=== PATIENT | male | born 1950 | race Caucasian/White ===

== ENCOUNTER 2018-08-06 22:10 | Emergency (ER) | payer OTHER ==
[~2018-08-06] VITALS: Ht 185.4 cm; Wt 99.8 kg
[2018-08-07] MEDS ORDERED: ZITHROMAX500 MG PO (02:49)
[2018-08-07] MEDS ORDERED: ZYNCOF 20-400120 ML PO (02:49)
[2018-08-07] MEDS ORDERED: SYMBICORT 16010.2 GM IH (02:49)
[2018-08-07] MEDS ORDERED: XOPENEX0.63 MG/3 IH (02:49)
[2018-08-07] MEDS ORDERED: SINGULAIR 10MG10 MG PO ×2 (02:51→02:54)
== END 2018-08-07 02:59 | disposition home or self-care (01) ==
LOC: ER 22:10
DX: B34.9 Viral infection, unspecified (principal); J11.1 Influenza due to unidentified influenza virus with other respiratory manifestations

== ENCOUNTER 2020-07-07 09:57 | Outpatient (CLI) | payer OTHER ==
[~2020-07-07 09:57] MED LIST: SINGULAIR 10MG10 MG PO; SYMBICORT 16010.2 GM IH; XOPENEX0.63 MG/3 IH; ZITHROMAX500 MG PO; ZYNCOF 20-400120 ML PO
== END 2020-07-07 10:08 | disposition home or self-care (01) ==
LOC: SONOGRAMA 09:57
PROVIDERS: ATTEND Specialist
DX: L04.2 Acute lymphadenitis of upper limb (principal); R22.32 Localized swelling, mass and lump, left upper limb

== ENCOUNTER 2023-12-31 23:37 | Emergency (ER) | payer OTHER ==
[~2023-12-31] VITALS: Ht 182.9 cm; Wt 106.6 kg
[2023-12-31] MEDS ORDERED: IRBESARTAN150 MG PO (23:53)
[2023-12-31] MEDS ORDERED: TOPROL XL25 M1 PO (23:54)
[2023-12-31] MEDS ORDERED: LIPITOR40 M1 PO (23:54)
[2024-01-01 03:37] LABS: HEMATOCRIT 43.2 % (39.0-48.0); HEMOGLOBIN 14.9 g/dL (13-16.00); MEAN CELL VOLUME 86.3 fL (80.0-100.00); MEAN CORPUSCULAR HEMOGLOBIN 29.8 pg (27.00-32.0); MEAN CORPUSCULAR HGB CONC 34.6 g/dl (32.0-36.0); RED BLOOD COUNT 5.01 M/uL (4.00-6.00); RED CELL DISTRIBUTION WIDTH 13.3 % (11.5-14.5)
[2024-01-01 03:40] LABS: PLATELET COUNT 98 K/uL (150-450)
[2024-01-01 03:51] LABS: CALCIUM 8.9 mg/dL (8.5-10.1); CREATININE SERUM 1.32 mg/dL (0.70-1.30); GFR 53.32; POTASSIUM 4.12 mEq/L (3.5-5.1)
[2024-01-01 04:50] LABS: PH,URINE 5.5 (5.0-8.0); URINE APPEARANCE Clear; URINE BILIRRUBIN Negative (NEGATIVE); URINE BLOOD Negative; URINE COLOR Yellow; URINE GLUCOSE Negative (NEGATIVE); URINE KETONE Negative (NEGATIVE); URINE LEUKOCYTE Negative; URINE NITRATE Negative; URINE PROTEIN Negative (NEGATIVE); URINE UROBILINOGEN 0.2 E.U./dl
[2024-01-01 04:53] LABS: URINE EPITHELIAL CELLS 1.5 uL (0.0-38.8); URINE RBC 3.9 uL (0.0-20.8); URINE WBC 3.3 uL (0.0-23.2)
[2024-01-01 05:02] LABS: URINE CAST 0.15 uL (0.0-1.40)
[2024-01-01] MEDS ORDERED: TYLENOL EXTRA500 MG PO (06:42)
[2024-01-01] MEDS ORDERED: ACETAMINOPHEN 500 MG GEL..CAP PO ONE ×3 (06:51→06:54)
== END 2024-01-01 06:55 ==
LOC: ER 23:38
PROVIDERS: General Practice
DX: N50.811 Right testicular pain (principal); R68.83 Chills (without fever); Z20.822 Contact with and (suspected) exposure to COVID-19; I10 Essential (primary) hypertension; N43.2 Other hydrocele

== ENCOUNTER 2024-01-05 16:17 | Inpatient (IN) | payer OTHER ==
[~2024-01-05] VITALS: Ht 182.9 cm; Wt 106.6 kg
[~2024-01-05 16:17] MED LIST changes: +IRBESARTAN150 MG PO; +LIPITOR40 M1 PO; +TOPROL XL25 M1 PO; +TYLENOL EXTRA500 MG PO
[2024-01-05] MEDS ORDERED: 0.9 % SODIUM CHLORIDE 1,000 ML IV SCH ×2 (17:15→21:15)
[2024-01-05 18:47] LABS: HEMATOCRIT 41.5 % (39.0-48.0); HEMOGLOBIN 14.1 g/dL (13-16.00); MEAN CELL VOLUME 86.1 fL (80.0-100.00); MEAN CORPUSCULAR HEMOGLOBIN 29.3 pg (27.00-32.0); RED BLOOD COUNT 4.82 M/uL (4.00-6.00); RED CELL DISTRIBUTION WIDTH 13.6 % (11.5-14.5)
[2024-01-05 18:50] LABS: INR 1.01; PARTIAL THROMBOPLASTIN TIME 30.6 SECONDS (22.0-34.0)
[2024-01-05 18:59] LABS: ALBUMIN 3.3 gm/dL (3.4-5.0); BILIRUBIN TOTAL 0.83 mg/dL (0.3-1.2); CALCIUM 8.2 mg/dL (8.5-10.1); CREATININE SERUM 1.18 mg/dL (0.70-1.30); GFR 60.68; GLOBULINA 3.3 G/DL (2.4-3.5); POTASSIUM 4.33 mEq/L (3.5-5.1); TOTAL PROTEIN 6.6 gm/dL (6.4-8.2)
[2024-01-05 19:12] LABS: PLATELET COUNT 64 K/uL (150-450)
[2024-01-05] MEDS ORDERED: ACETAMINOPHEN 500 MG GEL..CAP PO PRN (21:15)
[2024-01-05 23:39] VITALS: BP 142/66; O2SAT 99
[2024-01-06 01:57] LABS: URINE APPEARANCE Clear; URINE BILIRRUBIN Negative (NEGATIVE); URINE BLOOD Negative; URINE COLOR Yellow; URINE GLUCOSE Negative (NEGATIVE); URINE KETONE Negative (NEGATIVE); URINE LEUKOCYTE Negative; URINE NITRATE Negative; URINE PROTEIN 30 (NEGATIVE); URINE UROBILINOGEN 0.2 E.U./dl
[2024-01-06 02:00] LABS: URINE EPITHELIAL CELLS 1.6 uL (0.0-38.8)
[2024-01-06 02:20] VITALS: BP 160/85; O2SAT 98
[2024-01-06 02:26] LABS: URINE BACTERIA 3.7 uL (0.0-1933); URINE RBC 1.8 uL (0.0-20.8); URINE WBC 1.6 uL (0.0-23.2)
[2024-01-06] MEDS ORDERED: PANTOPRAZOLE SODIUM 40 MG/VIAL VIAL IV SCH (09:00)
[2024-01-06] MEDS ORDERED: METOPROLOL SUCCINATE 25 MG TAB.SR.24H PO SCH (09:00)
[2024-01-06 09:01] VITALS: BP 162/78; O2SAT 96
[2024-01-06 09:33] LABS: HEMATOCRIT 40.5 % (39.0-48.0); MEAN CELL VOLUME 85.3 fL (80.0-100.00); MEAN CORPUSCULAR HEMOGLOBIN 29.5 pg (27.00-32.0); MEAN CORPUSCULAR HGB CONC 34.6 g/dl (32.0-36.0); RED BLOOD COUNT 4.75 M/uL (4.00-6.00); RED CELL DISTRIBUTION WIDTH 13.4 % (11.5-14.5)
[2024-01-06 09:52] LABS: PLATELET COUNT 87 K/uL (150-450)
[2024-01-06 15:15] VITALS: BP 171/74; O2SAT 97
[2024-01-07 02:00] VITALS: BP 184/90; O2SAT 97
[2024-01-07 07:33] VITALS: BP 154/82; O2SAT 99
[2024-01-07 11:56] LABS: HEMOGLOBIN 13.8 g/dL (13-16.00); MEAN CELL VOLUME 85.3 fL (80.0-100.00); MEAN CORPUSCULAR HEMOGLOBIN 29.5 pg (27.00-32.0); MEAN CORPUSCULAR HGB CONC 34.6 g/dl (32.0-36.0); RED BLOOD COUNT 4.69 M/uL (4.00-6.00); RED CELL DISTRIBUTION WIDTH 13.1 % (11.5-14.5)
[2024-01-07 12:22] LABS: ALBUMIN 3.4 gm/dL (3.4-5.0); BILIRUBIN TOTAL 1.19 mg/dL (0.3-1.2); CALCIUM 8.1 mg/dL (8.5-10.1); CREATININE SERUM 1.06 mg/dL (0.70-1.30); GFR 68.67; GLOBULINA 3.2 G/DL (2.4-3.5); POTASSIUM 3.66 mEq/L (3.5-5.1); TOTAL PROTEIN 6.6 gm/dL (6.4-8.2)
[2024-01-07 13:15] LABS: PLATELET COUNT 126 K/uL (150-450)
[2024-01-07] MEDS ORDERED: AMLODIPINE BESYLATE 5 MG TABLET PO SCH (17:00)
[2024-01-07 20:25] VITALS: BP 160/82; O2SAT 98
[2024-01-08 01:35] VITALS: BP 147/70
[2024-01-08 08:49] LABS: HEMATOCRIT 36.3 % (39.0-48.0); HEMOGLOBIN 13.2 g/dL (13-16.00); MEAN CORPUSCULAR HEMOGLOBIN 30.2 pg (27.00-32.0); MEAN CORPUSCULAR HGB CONC 36.4 g/dl (32.0-36.0); PLATELET COUNT 149 K/uL (150-450); RED BLOOD COUNT 4.38 M/uL (4.00-6.00); RED CELL DISTRIBUTION WIDTH 13.4 % (11.5-14.5)
[2024-01-08] MEDS ORDERED: METOPROLOL SUCCINATE 50 MG TAB.SR.24H PO SCH (09:00)
[2024-01-08 09:03] LABS: ALBUMIN 3.3 gm/dL (3.4-5.0); BILIRUBIN TOTAL 1.25 mg/dL (0.3-1.2); CALCIUM 8.2 mg/dL (8.5-10.1); CREATININE SERUM 0.9 mg/dL (0.70-1.30); GFR 82.95; GLOBULINA 3.1 G/DL (2.4-3.5); POTASSIUM 3.87 mEq/L (3.5-5.1); TOTAL PROTEIN 6.4 gm/dL (6.4-8.2)
[2024-01-08] MEDS ORDERED: TOPROL XL50 M1 PO (09:11)
[2024-01-08] MEDS ORDERED: AMLODIPINE BESYL5 MG PO (09:11)
[2024-01-08] MEDS ORDERED: METOPROLOL SUCC50 MG PO (09:12)
[2024-01-08] MEDS ORDERED: SILDENAFIL CITR50 MG PO (09:13)
[2024-01-08] MEDS ORDERED: MONTELUKAST SOD10 MG PO (09:13)
[2024-01-08] MEDS ORDERED: COZAAR50 MG PO (09:18)
[2024-01-08] MEDS ORDERED: PROTONIX20 MG PO (09:19)
[2024-01-08 10:16] VITALS: BP 162/80
== END 2024-01-08 12:04 | disposition home or self-care (01) | DRG 866 ==
LOC: ER 16:19 → MEDJ 21:39 → SEC-K 21:39 → MEDJ 22:45
PROVIDERS: General Practice; ADMIT Internal Medicine; ATTEND Internal Medicine
PROC: BW40ZZZ Ultrasonography of Abdomen (ICD-10-PCS; principal; 2024-01-05)
DX: A90 Dengue fever [classical dengue] (principal); D69.6 Thrombocytopenia, unspecified; I10 Essential (primary) hypertension; E78.5 Hyperlipidemia, unspecified